=== PATIENT | female | born 1970 | race African-American/Black ===

== ENCOUNTER 2017-03-26 08:23 | Emergency (ER) | payer OTHER | END 2017-03-26 10:18 | disposition home or self-care (01) | LOC: CED 08:23 | DX: S83.91XA Sprain of unspecified site of right knee, initial encounter (principal); Z88.2 Allergy status to sulfonamides; Z88.8 Allergy status to other drugs, medicaments and biological substances; Z88.1 Allergy status to other antibiotic agents; X50.1XXA Overexertion from prolonged static or awkward postures, initial encounter; Y92.29 Other specified public building as the place of occurrence of the external cause; Y99.8 Other external cause status | CPT/HCPCS: 29505; 96372; 99283; J1885 ==